=== PATIENT | female | born 2000 | race Caucasian/White ===

== ENCOUNTER 2024-02-23 10:55 | Emergency (ER) | payer BC, SELFPAY ==
[2024-02-23 10:57] VITALS: BP 156/102
[2024-02-23 11:53] VITALS: BMI 31.7
[2024-02-23] MEDS: TORADOL 15 MG IV (11:55)
[2024-02-23 12:01] VITALS: BP 138/101
[2024-02-23 12:06] LABS: % Basophils 0.5 % (0-2); % Eosinophils 0.6 % (0-6); % Immature Granulocytes 0.2 % (0-0.5); % Lymphocytes 15.2 % (20.5-51.1); % Monocytes 4.7 % (1.7-9.3); % Neutrophils 78.8 % (42.2-75.2); Absolute Basophils 0.1 10^3/uL (0-0.2); Absolute Eosinophils 0.1 10^3/uL (0-0.7); Absolute Lymphocytes 1.9 10^3/uL (1.2-3.4); Absolute Monocytes 0.6 10^3/uL (0.1-0.6); Absolute Neutrophils 9.8 10^3/uL (1.4-6.5); Hematocrit 41.8 % (37.0-47.0); Hemoglobin 13.3 g/dL (12.0-16.0); Mean Corp Hgb Conc. 31.8 g/dL (33.0-37.0); Mean Corpuscular Hgb 27.5 pg (27.0-31.0); Mean Corpuscular Volume 86.4 fL (81.0-99.0); Mean Platelet Volume 8.7 fL (7.4-10.4); Nucleated Red Blood Cells % 0 %; Platelet Count 421 10^3/uL (130-400); Red Blood Cell Count 4.84 10^6/uL (4.20-5.40); Red Cell Dist. Width 13.2 % (11.5-14.5); White Blood Cell Count 12.4 10^3/uL (4.8-10.8)
[2024-02-23 12:08] LABS: Urine Albumin Negative (Neg - Trace); Urine Bilirubin Negative (Negative); Urine Character Clear (Clear); Urine Color Yellow; Urine Glucose Negative (Negative); Urine Ketone Negative (Negative); Urine Leukocyte Negative (Negative); Urine Nitrite Negative (Negative); Urine Occult Blood Negative (Negative); Urine Urobilinogen Negative (Neg - 1+)
[2024-02-23 12:13] LABS: HCG, Urine Qualitative Screen Negative
[2024-02-23 12:27] LABS: ALT (SGPT) 14 U/L (0-35); AST (SGOT) 18 U/L (14-36); Albumin 4.5 g/dl (3.5-5.0); Alkaline Phosphatase 93 U/L (38-126); Blood Urea Nitrogen 9 mg/dl (7-17); Calcium 9.5 mg/dl (8.4-10.2); Carbon Dioxide 27 mmol/L (22-30); Chloride 103 mmol/L (98-107); Estimated Creatinine Clearance > 125 ml/min; Glucose 83 mg/dl (70-99); Potassium 3.8 mmol/L (3.5-5.1); Sodium 141 mmol/L (135-145); Total Bilirubin 0.5 mg/dl (0.2-1.3); Total Protein 7.7 g/dl (6.3-8.2); eGFR > 60.00
--- NOTE | 2024-02-23 12:37 | ED.GENMED ---
History of Present Illness
General
Chief Complaint: Abdominal Pain
Time Seen by Provider: 02/23/24 11:20
History of Present Illness
History of Present Illness:
23-year-old female without significant past medical history presenting for right lower quadrant abdominal pain. Patient reports intermittent pain throughout the past month, however acutely worsened last night into this morning. Patient doctor
primary care doctor, is scheduled to get an outpatient ultrasound, however given worsening of pain, came to the ER. Took ibuprofen last evening with some improvement of pain. Denies any vaginal discharge. Last menstrual period was January 29.
Denies any abdominal surgeries. Denies any vomiting or diarrhea, has had some nausea. Denies any dysuria. Denies fever. Denies additional acute medical complaints
Phy Exam
Physical Exam
Physical Exam:
General: Well-appearing, no clinical signs of dehydration, nontoxic and in no acute distress
HEENT: protecting airway
Neck: appears supple
CV: Normal heart rate, regular rhythm
Resp: No accessory muscle use, no increased work of breathing, lungs clear to auscultation bilaterally
Abd: Soft and non-distended, mild tenderness to right lower quadrant in the pelvic region, no rebound or guarding
Extremities: No deformities, no swelling
Neuro: alert, no focal neurologic deficit
: deferred
Rectal: deferred
Psych: Normal affect
Skin: Intact
Course
Orders/Labs/Results
Orders:
Orders
02/23/24 11:43
Ketorolac [Toradol] 15 mg IV NOW STA
Test Result ONCE
US Pelvis Only (non-obstetric) Urgent
Comment:
Reason For Exam: R-pelvic pain
02/23/24 11:59
Complete Blood Count/With Diff Urgent
Comprehensive Metabolic Panel Urgent
HCG, Urine Qualitative Screen Urgent
Date Specimen was Collected: 02/23/24
Time Specimen was Collected: 11:50
Urinalysis Reflex To Culture Urgent
Date Specimen was Collected: 02/23/24
Time Specimen was Collected: 11:50
02/23/24 14:35
CT Abd/pelvis W Iv Cont Urgent
Comment:
Reason For Exam: RLQ pain
Abnormal Lab Results
02/23/24
11:59
WBC 12.4 H 10^3/uL
(4.8-10.8)
MCHC 31.8 L g/dL
(33.0-37.0)
Plt Count 421 H 10^3/uL
(130-400)
Absolute Neuts (auto) 9.8 H 10^3/uL
(1.4-6.5)
Neutrophils % 78.8 H %
(42.2-75.2)
Lymphocytes % 15.2 L %
(20.5-51.1)
Creatinine 0.5 L mg/dL
(0.6-1.0)
02/23/24 11:59
02/23/24 11:59
Vital Signs
Initial and Last Documented VS:
Initial Vital Signs
Temp Pulse Resp BP Pulse Ox
98.5 F 89 18 156/102 99
02/23/24 10:57 02/23/24 10:57 02/23/24 10:57 02/23/24 10:57 02/23/24 10:57
Last Documented Vital Signs
Temp Pulse Resp BP Pulse Ox
98.5 F 89 18 138/101 99
02/23/24 10:57 02/23/24 10:57 02/23/24 10:57 02/23/24 12:01 02/23/24 14:15
MDM/Problems Addressed
MDM/Problems Addressed:
23-year-old female presenting for right-sided abdominal pain. Vital signs significant for high blood pressure.
On exam patient is resting comfortably, nontoxic, no acute distress or discomfort. Mild tenderness to the right lower pelvic region. Primary concern for ovarian pathology, likely ruptured ovarian cyst. Ovarian torsion is also consideration. Will
initiate workup with ultrasound imaging, laboratory analysis, urinalysis.
14:40 -workup grossly unremarkable. Labs show mild leukocytosis. Ultrasound without any abnormality. Patient does note that she is still having pain. For this reason we will obtain CT to rule out appendicitis
15:50 -CT negative for appendicitis. Patient otherwise remained stable. Unclear etiology of symptoms, however feel stable for discharge and outpatient follow-up. Return precautions discussed and patient verbalized understanding
*Critical Care Note
Total Time (30-74mins, 75-104mins- exclusive of procedures): Not Applicable
ED Attending Note
-
Portions of this chart may have been created with voice recognition software.� Occasional wrong word or��sound alike� substitutions may have occurred due to the inherent limitations of voice recognition software.
Discharge Plan
Departure
Referrals:
Alma Roe CRNP [Family Provider] -
Interventions
Interventions:
*Risk Screen - Suicide Last Done: 02/23/24 10:57
*General Assessment Last Done: 02/23/24 10:57
*Neglect/Abuse Screening Last Done: 02/23/24 10:57
ED- Fall Risk Assessment Last Done: 02/23/24 11:29
*ED COVID-19 Vaccine History Last Done: 02/23/24 10:57
SZ-Fwsuor-Zlrrffszgp Assessment Last Done: 02/23/24 11:29
Discharge Date and Time
Print Language: MOLDOVAN
[2024-02-23 16:25] VITALS: BP 128/86
== END 2024-02-23 16:20 | disposition home or self-care (01) ==
LOC: EMR 10:55
PROVIDERS: EMERGENCY PHYSICIAN Student in an Organized Health Care Education/Training Program; FAMILY PHYSICIAN Nurse Practitioner Adult Health
DX: R10.31 Right lower quadrant pain (principal); R03.0 Elevated blood-pressure reading, without diagnosis of hypertension
CPT/HCPCS: 99284; 96374; 74177; 76856; 80053; 81003; 81025; 85025; Q9967

== ENCOUNTER → 2024-03-05 08:05 | Outpatient (REF) | payer BC, SELFPAY | LOC: HWRAD 08:05 | PROVIDERS: ATTENDING PHYSICIAN Nurse Practitioner Adult Health | DX: R10.31 Right lower quadrant pain (principal) | CPT/HCPCS: 76830; 76856 ==

== ENCOUNTER 2024-12-14 06:15 | Day surgery (SDC) | payer BC, SELFPAY ==
[2024-12-14] VITALS (7 sets, daily range): BP systolic 125–149; BP diastolic 73–92; BMI 33.1
[2024-12-14] MEDS: NORMOSOL-R/PLASMALYTE-A 1000 IV (06:33)
[2024-12-14] MEDS: DILAUDID 0.25 MG IV (08:25)
[2024-12-14] MEDS: TYLENOL 650 MG PO (09:23)
== END 2024-12-14 09:56 | disposition home or self-care (01) ==
LOC: SDS 06:15
PROVIDERS: ATTENDING PHYSICIAN Otolaryngology
DX: J35.01 Chronic tonsillitis (principal)
CPT/HCPCS: 42821; 88304